=== PATIENT | male | born 1935 | race Caucasian/White ===

== ENCOUNTER 2018-09-08 09:44 | Inpatient (IN) | payer OTHER ==
[~2018-09-08] VITALS: Ht 177.8 cm; Wt 81.6 kg
--- NOTE | 2018-09-08 09:51 | NUR ---
SE RECIBE PACIENTE EN AMBULANCIA REFIERE FAMILIAR BOCA VIRADA Y PROBLEMAS EN LADO DERECHO SE MEIR S/V Y SE REALIZA EKG Y SE UBICA EN AREA DE OBSERVACION
--- NOTE | 2018-09-08 10:19 | NUR ---
MR Lj IVY ORIENTA A FAMILIAR SOBRE ORDENES MEDICAS, COLECTA MUESTRAS DE LABORATORIO, PENDIENTE CT SCAN.
--- NOTE | 2018-09-08 12:11 | NUR ---
PACIENTE LLEGO CANALIZADO EN CUBITAL BRAZO LT, PATENTE Y MANSI DE S/S DE FLEBITIS E INFILTRACION.
== END 2018-09-20 18:13 | disposition home or self-care (01) | DRG 65 ==
LOC: ER 09:44 → MEDI 16:30 → MEDJ 16:30 → EDSEX 16:30 → MEDJ 09-09 10:53 → MEDI 09-11 17:26
PROVIDERS: ADMIT Internal Medicine Cardiovascular Disease
PROC: 4A12X4Z Monitoring of Cardiac Electrical Activity, External Approach (ICD-10-PCS; principal; 2018-09-08)
PROC: B020ZZZ Computerized Tomography (CT Scan) of Brain (ICD-10-PCS; 2018-09-08)
PROC: B030ZZZ Magnetic Resonance Imaging (MRI) of Brain (ICD-10-PCS; 2018-09-08)
PROC: B346ZZZ Ultrasonography of Right Internal Carotid Artery (ICD-10-PCS; 2018-09-08)
PROC: B345ZZZ Ultrasonography of Bilateral Common Carotid Arteries (ICD-10-PCS; 2018-09-08)
PROC: B246ZZZ Ultrasonography of Right and Left Heart (ICD-10-PCS; 2018-09-08)
PROC: B020ZZZ Computerized Tomography (CT Scan) of Brain (ICD-10-PCS; 2018-09-11)
PROC: 02HV33Z Insertion of Infusion Device into Superior Vena Cava, Percutaneous Approach (ICD-10-PCS; 2018-09-12)
PROC: 02HV33Z Insertion of Infusion Device into Superior Vena Cava, Percutaneous Approach (ICD-10-PCS; 2018-09-12)
DX: I63.412 Cerebral infarction due to embolism of left middle cerebral artery (principal); I69.351 Hemiplegia and hemiparesis following cerebral infarction affecting right dominant side; I69.320 Aphasia following cerebral infarction; I10 Essential (primary) hypertension; E11.9 Type 2 diabetes mellitus without complications; I69.391 Dysphagia following cerebral infarction; R13.19 Other dysphagia
CPT/HCPCS: 70551

== ENCOUNTER 2018-09-23 00:05 | Inpatient (IN) | payer OTHER ==
[~2018-09-23] VITALS: Ht 180.3 cm; Wt 81.6 kg
== END 2018-11-18 12:35 | disposition home or self-care (01) | DRG 377 ==
LOC: ER 00:05 → MEDJ 06:46 → MEDI 06:46 → MEDJ 10-22 10:58
PROVIDERS: ADMIT Internal Medicine Cardiovascular Disease
PROC: 0T9B70Z Drainage of Bladder with Drainage Device, Via Natural or Artificial Opening (ICD-10-PCS; 2018-09-23)
PROC: 4A12X4Z Monitoring of Cardiac Electrical Activity, External Approach (ICD-10-PCS; 2018-09-23)
PROC: 3E0H76Z Introduction of Nutritional Substance into Lower GI, Via Natural or Artificial Opening (ICD-10-PCS; 2018-09-24)
PROC: BB24ZZZ Computerized Tomography (CT Scan) of Bilateral Lungs (ICD-10-PCS; 2018-09-24)
PROC: 3E0F7GC Introduction of Other Therapeutic Substance into Respiratory Tract, Via Natural or Artificial Opening (ICD-10-PCS; 2018-09-25)
PROC: 0CJS8ZZ Inspection of Larynx, Via Natural or Artificial Opening Endoscopic (ICD-10-PCS; 2018-09-26)
PROC: B030ZZZ Magnetic Resonance Imaging (MRI) of Brain (ICD-10-PCS; 2018-09-29)
PROC: 4A033R1 Measurement of Arterial Saturation, Peripheral, Percutaneous Approach (ICD-10-PCS; 2018-10-07)
PROC: 02HV33Z Insertion of Infusion Device into Superior Vena Cava, Percutaneous Approach (ICD-10-PCS; 2018-10-09)
PROC: 0DJ08ZZ Inspection of Upper Intestinal Tract, Via Natural or Artificial Opening Endoscopic (ICD-10-PCS; principal; 2018-10-15)
PROC: 8E0ZXY6 Isolation (ICD-10-PCS; 2018-10-21)
PROC: 30233N1 Transfusion of Nonautologous Red Blood Cells into Peripheral Vein, Percutaneous Approach (ICD-10-PCS; 2018-10-25)
PROC: CW101ZZ Planar Nuclear Medicine Imaging of Abdomen using Technetium 99m (Tc-99m) (ICD-10-PCS; 2018-10-26)
PROC: 05HM33Z Insertion of Infusion Device into Right Internal Jugular Vein, Percutaneous Approach (ICD-10-PCS; 2018-10-30)
PROC: 0DB28ZX Excision of Middle Esophagus, Via Natural or Artificial Opening Endoscopic, Diagnostic (ICD-10-PCS; 2018-11-05)
PROC: 0DHA3UZ Insertion of Feeding Device into Jejunum, Percutaneous Approach (ICD-10-PCS; 2018-11-06)
DX: K29.01 Acute gastritis with bleeding (principal); J18.1 Lobar pneumonia, unspecified organism; I61.1 Nontraumatic intracerebral hemorrhage in hemisphere, cortical; B37.1 Pulmonary candidiasis; B37.7 Candidal sepsis; I69.351 Hemiplegia and hemiparesis following cerebral infarction affecting right dominant side; J91.8 Pleural effusion in other conditions classified elsewhere; J98.11 Atelectasis; F32.1 Major depressive disorder, single episode, moderate; N17.8 Other acute kidney failure; N39.0 Urinary tract infection, site not specified; B49 Unspecified mycosis; E44.0 Moderate protein-calorie malnutrition; I48.0 Paroxysmal atrial fibrillation; K20.8 Other esophagitis; I69.320 Aphasia following cerebral infarction; R33.8 Other retention of urine; K26.3 Acute duodenal ulcer without hemorrhage or perforation; E11.65 Type 2 diabetes mellitus with hyperglycemia; J04.0 Acute laryngitis; I10 Essential (primary) hypertension; I69.191 Dysphagia following nontraumatic intracerebral hemorrhage; E78.49 Other hyperlipidemia; K92.0 Hematemesis; D72.828 Other elevated white blood cell count; R31.0 Gross hematuria; K21.9 Gastro-esophageal reflux disease without esophagitis; F06.31 Mood disorder due to known physiological condition with depressive features; B96.5 Pseudomonas (aeruginosa) (mallei) (pseudomallei) as the cause of diseases classified elsewhere; Z79.4 Long term (current) use of insulin; Z46.59 Encounter for fitting and adjustment of other gastrointestinal appliance and device; D63.8 Anemia in other chronic diseases classified elsewhere
CPT/HCPCS: 70553

== ENCOUNTER 2018-12-17 18:47 | Inpatient (IN) | payer OTHER ==
[~2018-12-17] VITALS: Ht 177.8 cm; Wt 81.6 kg
[2018-12-19] MEDS ORDERED: LOSARTAN POTASS50 MG PO (08:16)
[2018-12-19] MEDS ORDERED: ENALAPRIL MALEA10 MG PO (08:16)
[2018-12-19] MEDS ORDERED: FAMOTIDINE40 MG PO (08:16)
[2018-12-19] MEDS ORDERED: OMEPRAZOLE20 MG PO (08:16)
[2018-12-19] MEDS ORDERED: DONEPEZIL HCL5 MG PO (08:16)
[2018-12-19] MEDS ORDERED: ATORVASTATIN CA20 MG PO (08:17)
[2018-12-19] MEDS ORDERED: CLOPIDOGREL BIS75 MG PO (08:17)
[2018-12-19] MEDS ORDERED: METFORMIN HCL500 M1 PO (08:18)
== END 2018-12-27 11:19 | disposition home or self-care (01) | DRG 637 ==
LOC: ER 18:47 → ICU 12-18 06:28 → ICU-2 12-18 06:28 → ICU 12-18 21:13 → MEDJ 12-25 11:03
PROVIDERS: ADMIT Internal Medicine Cardiovascular Disease
PROC: 4A12X4Z Monitoring of Cardiac Electrical Activity, External Approach (ICD-10-PCS; principal; 2018-12-25)
DX: E11.00 Type 2 diabetes mellitus with hyperosmolarity without nonketotic hyperglycemic-hyperosmolar coma (NKHHC) (principal); K29.61 Other gastritis with bleeding; A41.9 Sepsis, unspecified organism; J18.1 Lobar pneumonia, unspecified organism; R65.21 Severe sepsis with septic shock; I63.89 Other cerebral infarction; I69.351 Hemiplegia and hemiparesis following cerebral infarction affecting right dominant side; J90 Pleural effusion, not elsewhere classified; F32.1 Major depressive disorder, single episode, moderate; N39.0 Urinary tract infection, site not specified; B49 Unspecified mycosis; E87.0 Hyperosmolality and hypernatremia; D72.828 Other elevated white blood cell count; F06.30 Mood disorder due to known physiological condition, unspecified; E11.65 Type 2 diabetes mellitus with hyperglycemia; E86.0 Dehydration; I69.320 Aphasia following cerebral infarction; I10 Essential (primary) hypertension; L89.151 Pressure ulcer of sacral region, stage 1

== ENCOUNTER 2019-04-13 05:57 | Inpatient (IN) | payer OTHER ==
[~2019-04-13] VITALS: Ht 177.8 cm; Wt 81.6 kg
[~2019-04-13 05:57] MED LIST: ATORVASTATIN CA20 MG PO; CLOPIDOGREL BIS75 MG PO; DONEPEZIL HCL5 MG PO; ENALAPRIL MALEA10 MG PO; FAMOTIDINE40 MG PO; LOSARTAN POTASS50 MG PO; METFORMIN HCL500 M1 PO; OMEPRAZOLE20 MG PO
== END 2019-05-12 01:20 | disposition expired | DRG 177 ==
LOC: ER 05:57 → MEDJ 09:55 → ICU 04-22 14:51
PROVIDERS: ADMIT Internal Medicine Cardiovascular Disease
PROC: BB24ZZZ Computerized Tomography (CT Scan) of Bilateral Lungs (ICD-10-PCS; 2019-04-13)
PROC: 4A033R1 Measurement of Arterial Saturation, Peripheral, Percutaneous Approach (ICD-10-PCS; 2019-04-13)
PROC: 3E0G76Z Introduction of Nutritional Substance into Upper GI, Via Natural or Artificial Opening (ICD-10-PCS; 2019-04-13)
PROC: 0T9B70Z Drainage of Bladder with Drainage Device, Via Natural or Artificial Opening (ICD-10-PCS; 2019-04-13)
PROC: 8E0ZXY6 Isolation (ICD-10-PCS; 2019-04-13)
PROC: 3E0F7GC Introduction of Other Therapeutic Substance into Respiratory Tract, Via Natural or Artificial Opening (ICD-10-PCS; 2019-04-14)
PROC: 4A12X4Z Monitoring of Cardiac Electrical Activity, External Approach (ICD-10-PCS; 2019-04-14)
PROC: B246ZZZ Ultrasonography of Right and Left Heart (ICD-10-PCS; 2019-04-15)
PROC: 5A09457 Assistance with Respiratory Ventilation, 24-96 Consecutive Hours, Continuous Positive Airway Pressure (ICD-10-PCS; 2019-04-17)
PROC: BW40ZZZ Ultrasonography of Abdomen (ICD-10-PCS; 2019-04-17)
PROC: 02HV33Z Insertion of Infusion Device into Superior Vena Cava, Percutaneous Approach (ICD-10-PCS; 2019-04-21)
PROC: BW28ZZZ Computerized Tomography (CT Scan) of Head (ICD-10-PCS; 2019-05-05)
PROC: 0W9930Z Drainage of Right Pleural Cavity with Drainage Device, Percutaneous Approach (ICD-10-PCS; principal; 2019-05-08)
PROC: 0W9B30Z Drainage of Left Pleural Cavity with Drainage Device, Percutaneous Approach (ICD-10-PCS; 2019-05-10)
DX: J69.0 Pneumonitis due to inhalation of food and vomit (principal); R65.11 Systemic inflammatory response syndrome (SIRS) of non-infectious origin with acute organ dysfunction; B37.1 Pulmonary candidiasis; J96.02 Acute respiratory failure with hypercapnia; I50.23 Acute on chronic systolic (congestive) heart failure; T17.898A Other foreign object in other parts of respiratory tract causing other injury, initial encounter; I69.354 Hemiplegia and hemiparesis following cerebral infarction affecting left non-dominant side; J90 Pleural effusion, not elsewhere classified; N39.0 Urinary tract infection, site not specified; N17.8 Other acute kidney failure; J98.11 Atelectasis; I31.3 Pericardial effusion (noninflammatory); E87.0 Hyperosmolality and hypernatremia; E87.2 Acidosis; R18.8 Other ascites; F32.1 Major depressive disorder, single episode, moderate; K92.1 Melena; G72.81 Critical illness myopathy; I13.0 Hypertensive heart and chronic kidney disease with heart failure and stage 1 through stage 4 chronic kidney disease, or unspecified chronic kidney disease; J15.212 Pneumonia due to Methicillin resistant Staphylococcus aureus; J15.1 Pneumonia due to Pseudomonas; J15.0 Pneumonia due to Klebsiella pneumoniae; I48.0 Paroxysmal atrial fibrillation; I08.3 Combined rheumatic disorders of mitral, aortic and tricuspid valves; I69.391 Dysphagia following cerebral infarction; I87.2 Venous insufficiency (chronic) (peripheral); R13.19 Other dysphagia; R31.0 Gross hematuria; N18.2 Chronic kidney disease, stage 2 (mild); E86.0 Dehydration; E11.22 Type 2 diabetes mellitus with diabetic chronic kidney disease; E11.65 Type 2 diabetes mellitus with hyperglycemia; Z79.4 Long term (current) use of insulin; Z74.01 Bed confinement status; Z79.01 Long term (current) use of anticoagulants; Z93.1 Gastrostomy status; Z99.81 Dependence on supplemental oxygen